=== PATIENT | female | born 1960 | race Two or more races ===

== ENCOUNTER 2020-01-04 06:30 | Day surgery (SDC) | payer OTHER ==
[~2020-01-04 06:30] MED LIST: COZAAR100 MG PO; GRALISE600 MG PO; LEVOXYL50 MCG PO; NEXIUM10 MG PO; ZYRTEC10 M3 PO
== END 2020-01-04 11:35 | disposition home or self-care (01) ==
LOC: CIR.AMB 06:30
DX: K64.4 Residual hemorrhoidal skin tags (principal); K64.8 Other hemorrhoids; K62.0 Anal polyp